=== PATIENT | female | born 1985 | race Caucasian/White ===

== ENCOUNTER 2023-10-13 09:23 | Outpatient (CLI) | payer BC, SELFPAY | END 2023-10-13 09:24 | disposition home or self-care (01) | PROVIDERS: Visit Provider Obstetrics & Gynecology | DX: Z13.220 Encounter for screening for lipoid disorders (principal); Z13.1 Encounter for screening for diabetes mellitus | CPT/HCPCS: 80061; 82947 ==

== ENCOUNTER 2023-10-27 07:09 | Outpatient (CLI) | payer BC, SELFPAY ==
--- NOTE | 2023-10-27 07:15 | CRLHL7_ITS ---
For Patients: As a result of the Century Cures Act, medical imaging exams and procedure reports are released immediately into your electronic medical record. You may view this report before your referring provider. If you have questions, please contact your health care provider. INDICATION: abnormal uterine and vaginal bleeding COMPARISON: none TECHNIQUE: 2D alves scale and color Doppler images were acquired of the pelvis using a transabdominal and transvaginal approach. FINDINGS: Sonographic images demonstrate a normal size and smooth outer contour of the uterus. Uterus measures 9.4 cm in length by 4.8 cm in AP diameter by 5.6 cm in transverse dimension. The myometrium has a normal uniform echotexture. The endometrial lining appears normal and measures 6.2 mm in composite thickness. The right ovary measures 2.6 x 1.9 x 3.4 cm in size and the left ovary measures 2.5 x 1.7 x 1.6 cm. The ovaries demonstrate normal arterial and venous blood flow on color Doppler analysis. There are no suspicious fluid collections within the cul-de-sac. IMPRESSION: Normal pelvic ultrasound. Dictated by Cesar Jensen MD @ 10/27/2023 11:48:10 AM (Electronically Signed)
== END 2023-10-27 07:10 | disposition home or self-care (01) ==
LOC: US 07:12
PROVIDERS: Visit Provider Obstetrics & Gynecology
DX: N93.9 Abnormal uterine and vaginal bleeding, unspecified (principal)
CPT/HCPCS: 76830; 76856

== ENCOUNTER 2024-01-29 13:02 | Emergency (ER) | payer BC, SELFPAY ==
[2024-01-29 13:14] VITALS: BP 155/86; PULSE 60; RESP 18; TEMP 36.6; O2SAT 99; BMI 26.6
--- NOTE | 2024-01-29 13:32 | CRLHL7_ITS ---
For Patients: As a result of the Century Cures Act, medical imaging exams and procedure reports are released immediately into your electronic medical record. You may view this report before your referring provider. If you have questions, please contact your health care provider. INDICATION: Leg pain and swelling. TECHNIQUE: Ultrasound venous duplex lower right extremity. Compression venous exam was performed using alves-scale, color Doppler, and spectral Doppler analysis. COMPARISON: None. FINDINGS: Deep veins: Sonographic imaging demonstrates the right common femoral, deep femoral, superficial femoral, popliteal, posterior tibial and the contralateral right common femoral veins to be fully compressible with normal color Doppler blood flow. Superficial veins: Greater saphenous vein is fully compressible. No popliteal cyst. IMPRESSION: Normal right lower extremity venous ultrasound, no sign of deep venous thrombosis. Dictated by Haja Schaffer MD @ 01/29/2024 2:06:29 PM (Electronically Signed)
--- NOTE | 2024-01-29 13:41 | ED_ITS ---
HPI - General Adult General Date Seen: 01/29/24 Chief complaint: Lower Extremity Swelling Stated complaint: right leg swelling Time Seen by Provider: 01/29/24 13:22 Source: patient, RN notes reviewed and old records reviewed Mode of arrival: ambulatory Limitations: no limitations History of Present Illness HPI narrative: Patient is a generally healthy 38-year-old with some swelling primarily in her right lower extremity. She talked to the clinic and was recommended to come in to rule out blood clot. She notes that she has been sick the past week with upper respiratory symptoms including fever and cough, some chest pain when she coughs. She has felt a little short of breath as well over that time. She noticed the swelling today. She does not have any calf pain is not had any re dness. Denies any history of DVT or PE. She has a Mirena IUD but does not take oral contraceptives. She does not smoke. Health otherwise is good. Related Data Home Medications ?Medication ?Instructions ?Recorded ?Confirmed levonorgestrel 21 mcg/24 hr (up to 1 device intrauterine ONCE 11/21/23 01/29/24 8 years) 52 mg intrauterine device (Mirena) Allergies Allergy/AdvReac Type Severity Reaction Status Date / Time bee venom protein (honey bee) Allergy Unknown Unknown Verified 11/21/23 08:28 Review of Systems Status of ROS: Reports: 6 or more systems reviewed and unremarkable except as noted in History and below PFSH [facility] Medical History History of abnormal cervical Pap smear ?Z87.42 - Personal history of other diseases of the female genital tract (ICD-10) History of vaginal delivery Surgical History History of wisdom tooth extraction (2001) ?K08.409 - Partial loss of teeth, unspecified cause, unspecified class (ICD- 10) History of tonsillectomy and adenoidectomy (~1992) ?Z90.89 - Acquired absence of other organs (ICD-10) Family History Mother Multiple sclerosis Paternal Grandmother Diabetes Social History What is your current living situation?: I presently have a place to live Problems where you live: no known problems In the past 12 months, utilities in danger of being shut off: no In past 12 months, lack of transportation kept you from medical appts, meetings, work, or getting things needed for daily living: no In the past 12 mos, have been you worried that your food would run out before you had money to buy more?: never true In the past 12 mos, the food you bought just didn't last and you didn't have money to buy more?: never true Smoking Status: Never smoker Do you use any of these nicotine containing products: None Second hand tobacco smoke exposure: No How often do you have a drink containing alcohol: monthly or less How often do you have six or more drinks on one occasion: Never AUDIT-C Alcohol total score: 1 Non-prescribed substance use: denies use How often does anyone, including family, friends and others, physically hurt you : never How often does anyone, including family, friends and others, insult or talk down to you: never How often does anyone, including family, friends and others, threaten you with harm: never How often does anyone, including family, friends and others, scream or curse at you: never Little interest or pleasure in doing things: not at all Feeling down, depressed, or hopeless: not at all service: No Exam Narrative: Exam Narrative: Vital signs as noted above. In general, an alert, well-appearing patient. Head: Normocephalic, atraumatic. Eyes: Pupils are equal reactive. Extraocular movements are full. Conjunctivae are normal. ENT: Mucous membranes are moist. Neck: Supple without lymphadenopathy. Heart: Regular rate and rhythm. No murmur or rub. Lungs: Clear bilaterally. No increased work of breathing, crackles or wheezes. Abdomen: Soft and nontender. No organomegaly. Extremities: She has a little bit of nonpitting edema noted primarily around the right ankle. There is no calf tenderness or significant edema, no erythema or warmth. Distal CMS intact. Neurologic: Patient is alert and oriented to person and place. Speech is fluent. Face is symmetric. Moves all extremities equally. Affect: Normal. Skin: Warm and dry. Well perfused. Const: Vital Signs, click to edit/add: Vital Signs - 24 hr 01/29/24 13:14 01/29/24 15:30 Temperature 97.9 F Pulse Rate [Right Pulse Oximeter] 60 57 L Respiratory Rate 18 16 Blood Pressure [Ri ght Upper Arm] 155/86 H 134/87 Pulse Oximetry 99 Oxygen Delivery Me thod Room Air Documenting provider has reviewed patient's vital signs: yes Course Course ED Course: Will evaluate the right leg with an ultrasound to rule out DVT. Will check renal function, liver function, BNP. Lungs are clear, O2 sats are normal, I am not overly suspicious of congestive heart failure in the absence of other findings. Ultrasound is negative for DVT. Labs are reassuring. She has a normal creatinine, potassium minimally low at 3.3. Sodium 137. ALT mildly elevated at 71 normal AST, normal alk-phos. BNP unimpressive at 300. COVID flu and RSV are all negative. Discussed that at this point I would say that this is nonspecific fluid retention, likely will resolve on its own. Would recommend salt restriction, elevation, compression if needed over the next week or so. If not improving, see primary care. Return any time for worsening symptoms such as redness, pain, fever. Vital Signs Vital signs: Initial Vital Signs Temperature 97.9 F 01/29/24 13:14 Temperature Source Temporal Artery Scan 01/29/24 13:14 Pulse Rate 60 01/29/24 13:14 Pulse Rhythm Regular 01/29/24 13:14 Pulse Strength 3+ Normal 01/29/24 13:14 Respiratory Rate 18 01/29/24 13:14 Blood Pressure 155/86 H 01/29/24 13:14 Blood Pressure Mean 109 H 01/29/24 13:14 Blood Pressure Position Sitting 01/29/24 13:14 Pulse Oximetry 99 01/29/24 13:14 Oxygen Delivery Method Room Air 01/29/24 13:14 Vital Signs Temperature 97.9 F 01/29/24 13:14 Pulse Rate 60 01/29/24 13:14 Respiratory Rate 18 01/29/24 13:14 Blood Pressure 155/86 H 01/29/24 13:14 Pulse Oximetry 99 01/29/24 13:14 Oxygen Delivery Method Room Air 01/29/24 13:14 Temperature 97.9 F 01/29/24 13:14 Pulse Rate 57 L 01/29/24 15:30 Respiratory Rate 16 01/29/24 15:30 Blood Pressure 134/87 01/29/24 15:30 Pulse Oximetry 99 01/29/24 13:14 Oxygen Delivery Method Room Air 01/29/24 13:14 Medical Decision Making Lab Data Labs: Lab Results 01/29/24 01/29/24 Range/Units 13:30 14:00 Sodium 137 (135-149) mmol/L Potassium 3.3 L (3.6-5.1) mmol/L Chloride 102 (96-114) mmol/L Carbon Dioxide 28 (20-32) mmol/L Anion Gap 7 (7-15) mEq/L BUN 11 (5-24) mg/dL Creatinine 0.6 (0.5-1.5) mg/dL Estimated Creat Clear 122.42 Estimated GFR 117 ml/min Glucose 92 (60-115) mg/dL Calcium 8.6 (8.4-10.6) mg/dL Total Bilirubin 0.2 (0.1-1.5) mg/dL Direct Bilirubin 0.1 (0.0-0.5) mg/dL AST 28 (12-35) U/L ALT 71 H (4-35) U/L Alkaline Phosphatase 52 (40-150) U/L NT-Pro-B Natriuret Pep 306 pg/mL Total Protein 6.7 (6.0-8.3) g/dL Albumin 4.1 (3.3-5.0) g/dL SARS-CoV-2 (PCR) Negative SARS-CoV-2 (Negative) Influenza Type A (PCR) Negative PCR FLU A (Negative) Influenza Type B (PCR) Negative PCR FLU B (Negative) RSV (PCR) Negative PCR RSV (Negative) Imaging Data Venous US: Radiologist's impression: [facility] . Site : 1985 Study: US-Extremity Right LEV-01/29/2024 2:01:18 PM Ordering Physician: Kev Batista Final Report: INDICATION: Leg pain and swelling. TECHNIQUE: Ultrasound venous duplex lower right extremity. Compression venous exam was performed using alves-scale, color Doppler, and spectral Doppler analysis. COMPARISON: None. FINDINGS: Deep veins: Sonographic imaging demonstrates the right common femoral, deep femoral, superficial femoral, popliteal, posterior tibial and the contralateral right common femoral veins to be fully compressible with normal color Doppler blood flow. Superficial veins: Greater saphenous vein is fully compressible. No popliteal cyst. IMPRESSION: Normal right lower extremity venous ultrasound, no sign of deep venous thrombosis. Discharge Plan Discharge Clinical Impression: Edema of lower extremity Patient Disposition: Home, Self-Care Condition: Stable Instructions: Leg Edema (ED) Additional Instructions: There is no evidence of blood clot on your ultrasound. Your labs are also normal, kidney function, liver function, heart function etcetera all look good. For now, I would just try to elevate your legs as much as possible over the next couple of days. I suspect this is more just functional water retention and will resolve on its own, but if you have persistent or worsening symptoms see her primary doctor. Return any time for new symptoms such as pain, redness, fever etc.. Prescriptions: No Action Mirena 21 mcg/24 hr (8 yrs) 52 mg intrauterine device 1 device intrauterine ONCE Rx Instructions: as a single dose Follow Up/Referrals: Provider,Not a Local [Primary Care Provider] - Stand Alone Forms: MyHealth Info Instructions
[2024-01-29 14:20] LABS: PCR FLU A Negative PCR FLU A (Negative); PCR FLU B Negative PCR FLU B (Negative); PCR RSV Negative PCR RSV (Negative); SARS PCR* Negative SARS-CoV-2 (Negative)
[2024-01-29 14:25] LABS: Albumin* 4.1 g/dL (3.3-5.0); Chloride* 102 mmol/L (96-114); Potassium* 3.3 mmol/L (3.6-5.1); Sodium* 137 mmol/L (135-149)
[2024-01-29 14:28] LABS: Alanine Aminotransferase* 71 U/L (4-35); Alkaline Phosphatase* 52 U/L (40-150); Anion Gap 7 mEq/L (7-15); Aspartate Amino Transferase* 28 U/L (12-35); Bilirubin Direct* 0.1 mg/dL (0.0-0.5); Bilirubin Total* 0.2 mg/dL (0.1-1.5); Blood Urea Nitrogen* 11 mg/dL (5-24); Calcium* 8.6 mg/dL (8.4-10.6); Carbon Dioxide* 28 mmol/L (20-32); Creatinine* 0.6 mg/dL (0.5-1.5); Est. Creatinine Clearance* 122.42; Estimated Glomerular Filt Rate 117 ml/min; Glucose* 92 mg/dL (60-115); Total Protein* 6.7 g/dL (6.0-8.3)
[2024-01-29 14:53] LABS: NT Pro B Type NatriureticPept* 306 pg/mL
[2024-01-29 15:30] VITALS: BP 134/87; PULSE 57; RESP 16
== END 2024-01-29 15:31 | disposition home or self-care (01) ==
PROVIDERS: Emergency Provider Emergency Medicine
DX: R60.9 Edema, unspecified (principal)
CPT/HCPCS: 36415; 80048; 80076; 83880; 87631; 93971; 99284

== ENCOUNTER 2025-01-03 13:49 | Outpatient (CLI) | payer BC, SELFPAY ==
--- NOTE | 2025-01-03 14:00 | CRLHL7_ITS ---
For Patients: As a result of the Century Cures Act, medical imaging exams and procedure reports are released immediately into your electronic medical record. You may view this report before your referring provider. If you have questions, please contact your health care provider. INDICATION: BILATERAL SCREENING MAMMOGRAM, ASYMPTOMATIC 39 Y/O FEMALE COMPARISON: 09/20/2019 TECHNIQUE: Digital mammogram in CC and MLO projections including computer-aided detection (CAD) and tomosynthesis. BREAST COMPOSITION: The breasts are heterogeneously dense, which may obscure small masses. FINDINGS: No suspicious findings. ASSESSMENT: BI-RADS 1 Negative RECOMMENDATION: Annual screening mammogram. A lay language report of this examination will be provided to the patient. Dictated by: Cesar Jensen MD @ 01/04/2025 09:24:57 (Electronically Signed)
== END 2025-01-03 13:50 | disposition home or self-care (01) ==
LOC: MAMMO 13:49
PROVIDERS: PCP Physician Assistant Medical; Visit Provider Obstetrics & Gynecology
DX: Z12.31 Encounter for screening mammogram for malignant neoplasm of breast (principal); R92.333 Mammographic heterogeneous density, bilateral breasts
CPT/HCPCS: 77063; 77067